=== PATIENT | female | born 1975 | race Caucasian/White ===

== ENCOUNTER → 2017-07-16 | Outpatient (CLI) | payer OTHER ==
[2017-07-16] MEDS: GADOBUTROL 7.5 MMOL/7.5 ML VIAL INT ART (13:55)
[2017-07-16] MEDS: LIDOCAINE 1% Multi-Dose 20 ML VIAL. ID (13:55)
== END | disposition home or self-care (01) ==
LOC: KCIC 12:43
DX: M19.011 Primary osteoarthritis, right shoulder (principal); M25.411 Effusion, right shoulder
CPT/HCPCS: 72141; 73040; 73222; A9585